=== PATIENT | male | born 1980 | race Caucasian/White ===

== ENCOUNTER → 2017-05-19 | Outpatient (CLI) | payer OTHER ==
[2017-05-19 14:57] LABS: ALBUMIN 4.1 GM/DL (3.2-5.2); ALBUMIN/GLOBULIN RATIO 1.17 (1.00-1.93); ALKALINE PHOSPHATASE 70 U/L (45-117); ALT/SGPT 31 U/L (12-78); ANION GAP 9 MEQ/L (8-16); AST/SGOT 15 U/L (7-37); BILIRUBIN,TOTAL 0.6 MG/DL (0.2-1.0); BLOOD UREA NITROGEN 23 MG/DL (7-18); CALCIUM LEVEL 9.1 MG/DL (8.5-10.1); CARBON DIOXIDE LEVEL 27 MEQ/L (21-32); CHLORIDE LEVEL 106 MEQ/L (98-107); CHOLESTEROL LEVEL 158 MG/DL (<200); CHOLESTEROL RISK RATIO 3.291 (<5); CREATININE FOR GFR 0.78 MG/DL (0.70-1.30); GLOMERULAR FILTRATION RATE > 60.0 (>60); GLUCOSE, FASTING 102 MG/DL (70-100); HDL CHOLESTEROL 48 MG/DL (>40); NON-HDL-C 110 MG/DL; POTASSIUM SERUM 4.4 MEQ/L (3.5-5.1); SODIUM LEVEL 142 MEQ/L (136-145); TOTAL PROTEIN 7.6 GM/DL (6.4-8.2); TRIGLYCERIDES LEVEL 115 MG/DL (<150)
== END ==
LOC: M SMT 09:16
DX: E66.9 Obesity, unspecified (principal)
CPT/HCPCS: 80053

== ENCOUNTER 2018-06-25 16:41 | Emergency (ER) | payer OTHER, SELFPAY ==
[~2018-06-25] VITALS: Ht 185.4 cm; Wt 163.6 kg
[2018-06-25] MEDS ORDERED: ACETAMINOPHEN TAB 650MG DOSE (2X325MG) PO ONE (18:45)
--- NOTE | 2018-06-25 18:59 | REP ---
Clinical: Trauma. Technique: Axial noncontrast images from the skull base to the thoracic inlet with coronal and sagittal re-formations. Comparison: Cervical spine x-rays dated 04/28/2017. Findings: Straightening of normal lordosis is nonspecific may be related to positioning versus pain/spasm. No acute fracture / compression injury or subluxation identified. Mild multilevel degenerative changes include endplate sclerosis with minimal disc space narrowing predominantly involving C6-7 and C7-T1. Spinal canal is patent. Posterior elements and spinous processes are intact. Paravertebral soft tissues are normal. Impression: Mild multilevel degenerative changes. No acute fracture / compression injury or subluxation. Electronically Signed by James Paul MD 06/25/2018 06:50 P
--- NOTE | 2018-06-25 19:06 | REP ---
Clinical: Trauma. Technique: Frontal view of the chest with multiple (4) views of the left hemithorax. Findings: Frontal view of the chest demonstrates no acute cardiopulmonary process. Multiple views of the left hemithorax demonstrates no obvious acute rib fracture or pathology. Impression: Normal left rib series. No acute fracture or dislocation appreciated. Electronically Signed by James Paul MD 06/25/2018 06:58 P
--- NOTE | 2018-06-25 19:07 | REP ---
Clinical: Trauma. Fall. Technique: Internal rotation, external rotation, and Y view of the left shoulder. Findings: Mild age-related changes at the acromioclavicular joint and glenoid are appreciated. There is no evidence for acute fracture or dislocation. Subacromial space is normal. No periarticular calcifications or loose bodies are identified. Surrounding soft tissues are normal. Impression: Mild age-related changes. No evidence for acute fracture or dislocation. Electronically Signed by James Paul MD 06/25/2018 06:58 P
[2018-06-25] MEDS ORDERED: HYDR-3715 PO (19:27)
[2018-06-25 19:34] VITALS: BP 121/74
== END 2018-06-25 19:35 | disposition home or self-care (01) ==
LOC: M ED 16:41
DX: S46.812A Strain of other muscles, fascia and tendons at shoulder and upper arm level, left arm, initial encounter (principal); M50.30 Other cervical disc degeneration, unspecified cervical region; W00.2XXA Other fall from one level to another due to ice and snow, initial encounter; Y92.812 Truck as the place of occurrence of the external cause; Y99.0 Civilian activity done for income or pay; Z88.8 Allergy status to other drugs, medicaments and biological substances

== ENCOUNTER 2018-09-12 01:01 | Emergency (ER) | payer OTHER ==
[~2018-09-12] VITALS: Ht 185.4 cm; Wt 163.6 kg
[~2018-09-12 01:01] MED LIST: HYDR-3715 PO
[2018-09-12] MEDS ORDERED: NORCO, ANEXSIA 5/325MG TABLET (HYDROcodone/ACETAMINOPHEN) PO ONE (02:00)
[2018-09-12] MEDS ORDERED: TRAM50TA2 PO (03:01)
[2018-09-12 03:20] VITALS: BP 137/69
--- NOTE | 2018-09-12 09:30 | REP ---
RIGHT KNEE SERIES: Six views of the right knee are performed. No fracture or dislocation is seen. There is minimal medial joint space narrowing. There is mild patellofemoral compartment narrowing and mild spurring of the lateral patellar facet and superior pole of the patella. There does not appear to be a significant joint effusion. IMPRESSION: Mild degenerative changes. No fracture or dislocation. Electronically Signed by Timoteo Evangelista MD 09/12/2018 04:38 P
== END 2018-09-12 03:26 | disposition home or self-care (01) ==
LOC: M ED 01:01
DX: M76.51 Patellar tendinitis, right knee (principal); M70.41 Prepatellar bursitis, right knee; W11.XXXA Fall on and from ladder, initial encounter; Y92.099 Unspecified place in other non-institutional residence as the place of occurrence of the external cause; Y93.9 Activity, unspecified; Y99.9 Unspecified external cause status; Z88.6 Allergy status to analgesic agent

== ENCOUNTER 2019-11-02 16:31 | Emergency (ER) | payer OTHER ==
[~2019-11-02 16:31] MED LIST changes: +TRAM50TA2 PO
[2019-11-02] MEDS ORDERED: ACETAMINOPHEN 325 MG TAB ONE (20:21)
[2019-11-02] MEDS ORDERED: MAGNESIUM SULFATE 1GM/100ML D5W BAG (10MG/ML) ONE (21:33)
[2019-12-08 21:36] LABS: BASO % 0.1 % (0.0-1.0); HEMATOCRIT 39.7 % (42.0-52.0); HEMOGLOBIN 13.7 g/dl (13.5-17.5); LYMPH # 0.5 10^3/uL (1.5-5.0); LYMPH % 2.8 % (24.0-44.0); MEAN CORPUSCULAR HEMOGLOBIN 28.6 pg (27.0-33.0); MEAN CORPUSCULAR HGB CONC 34.5 g/dl (32.0-36.5); MEAN CORPUSCULAR VOLUME 82.9 fl (80.0-96.0); MONO # 0.9 10^3/uL (0.0-0.8); MONO % 5.4 % (0.0-5.0); NEUTROPHILS # 14.8 10^3/uL (1.5-8.5); NEUTROPHILS % 91.1 % (36.0-66.0); PLATELET COUNT, AUTOMATED 238 10^3/uL (150-450); RED BLOOD COUNT 4.79 10^6/uL (4.30-6.10); WHITE BLOOD COUNT 16.2 10^3/uL (4.0-10.0)
--- NOTE | 2019-12-17 14:03 | ECGEPIP ---
[facility] - ED Test Date: 2019-11-02 Pat Name: ANI HUIZAR JR Department: Room: - Gender: Male [employer] Systems [employer]: : 1980 Requested By: EMERGENCY ROOM Order Number: [id number] Reading MD: Alix Ramesh Measurements Intervals [place]man Rate: 107 P: 1 MO: 143 QRS: -13 QRSD: 95 T: -3 QT: 293 QTc: 391 Interpretive Statements SINUS TACHYCARDIA ABNORMAL RHYTHM ECG INTERPRETATION BASED ON A DEFAULT AGE OF 40 YEARS PRWP NO OLD AVAILABLE SEE SCANNED DOWNTIME REPORT
--- NOTE | 2019-12-18 15:59 | ECGEPIP ---
SINUS RHYTHM NORMAL ECG INTERPRETATION BASED ON A DEFAULT AGE OF 40 YEARS, NO OLD AVAILABLE SEE SCANNED DOWNTIME REPORT MTDD
[2020-01-12 14:03] LABS: ALBUMIN 4.7 GM/DL (3.2-5.2); ALT/SGPT 34 U/L (12-78); BILIRUBIN,TOTAL 1.4 MG/DL (0.2-1.0); BLOOD UREA NITROGEN 23 MG/DL (7-18); CALCIUM LEVEL 9.1 MG/DL (8.5-10.1); CARBON DIOXIDE LEVEL 25 MEQ/L (21-32); CHLORIDE LEVEL 103 MEQ/L (98-107); CREATININE FOR GFR 1.32 MG/DL (0.70-1.30); GLOMERULAR FILTRATION RATE > 60.0 (>60); GLUCOSE, FASTING 100 MG/DL (70-100); MAGNESIUM LEVEL 1.6 MG/DL (1.8-2.4); SODIUM LEVEL 136 MEQ/L (136-145); TROPONIN I < 0.02 NG/ML (< 0.10)
== END 2019-11-03 03:03 | disposition home or self-care (01) ==
LOC: M ED 16:31
DX: E86.0 Dehydration (principal); R07.89 Other chest pain; Z88.8 Allergy status to other drugs, medicaments and biological substances
CPT/HCPCS: 80053; 83605; 83735; 85025; 87486; 87581; 87633; 87798; 93005; 96374; 99283; J3475

== ENCOUNTER → 2020-04-08 | Outpatient (CLI) | payer MEDICAID, OTHER ==
--- NOTE | 2020-04-08 13:55 | REP ---
INDICATION: DVT COMPARISON: None. TECHNIQUE: Evangelista scale and color Doppler evaluation right lower extremity using linear high frequency transducer. FINDINGS: Ultrasound examination of the right lower extremity deep venous structures from the common femoral vein to the popliteal vein demonstrates normal compressibility flow and wave patterns in response to respiration and augmentation. There is no evidence for deep venous thrombosis. IMPRESSION: No evidence for deep venous thrombosis. <Electronically signed by James Paul > 04/08/20 1324
== END ==
LOC: M RAD 12:44
PROVIDERS: ATTEND Physician Assistant
DX: R22.42 Localized swelling, mass and lump, left lower limb (principal); M79.661 Pain in right lower leg

== ENCOUNTER 2020-10-12 17:08 | Emergency (ER) | payer OTHER ==
[~2020-10-12] VITALS: Ht 185.4 cm; Wt 157.3 kg
[2020-10-12 17:08] VITALS: BP 170/95
[2020-10-12 21:21] LABS: BASO % 0.1 % (0.0-1.0); EOS # 0.1 10^3/uL (0.0-0.5); EOS % 1.8 % (0.0-3.0); HEMATOCRIT 41.6 % (42.0-52.0); HEMOGLOBIN 14.1 g/dl (13.5-17.5); LYMPH # 1.7 10^3/uL (1.5-5.0); LYMPH % 23.5 % (24.0-44.0); MEAN CORPUSCULAR HEMOGLOBIN 28.9 pg (27.0-33.0); MEAN CORPUSCULAR HGB CONC 33.9 g/dl (32.0-36.5); MEAN CORPUSCULAR VOLUME 85.2 fl (80.0-96.0); MONO # 0.6 10^3/uL (0.0-0.8); MONO % 8.5 % (2.0-8.0); NEUTROPHILS # 4.6 10^3/uL (1.5-8.5); NEUTROPHILS % 65.5 % (36.0-66.0); PLATELET COUNT, AUTOMATED 261 10^3/uL (150-450); RED BLOOD COUNT 4.88 10^6/uL (4.30-6.10); WHITE BLOOD COUNT 7.1 10^3/uL (4.0-10.0)
[2020-10-12 21:55] LABS: ERYTHROCYTE SEDIMENTATION RATE 11 mm/hr (0-15)
== END 2020-10-12 23:16 | disposition home or self-care (01) ==
LOC: M ED 17:08
DX: S92.591A Other fracture of right lesser toe(s), initial encounter for closed fracture (principal); W22.8XXA Striking against or struck by other objects, initial encounter; Y92.018 Other place in single-family (private) house as the place of occurrence of the external cause; Z88.8 Allergy status to other drugs, medicaments and biological substances

== ENCOUNTER 2022-11-09 14:04 | Inpatient (IN) | payer OTHER ==
[~2022-11-09] VITALS: Ht 185.4 cm; Wt 156.7 kg
[2022-11-09 15:52] LABS: BASO % 0.1 % (0.0-1.0); EOS % 0.1 % (0.0-3.0); HEMOGLOBIN 13.7 g/dl (13.5-17.5); LYMPH # 0.6 10^3/uL (1.5-5.0); LYMPH % 3.5 % (24.0-44.0); MEAN CORPUSCULAR HEMOGLOBIN 29.4 pg (27.0-33.0); MEAN CORPUSCULAR HGB CONC 35.1 g/dl (32.0-36.5); MEAN CORPUSCULAR VOLUME 83.7 fl (80.0-96.0); MONO # 0.7 10^3/uL (0.0-0.8); MONO % 4.6 % (2.0-8.0); NEUTROPHILS # 14.7 10^3/uL (1.5-8.5); NEUTROPHILS % 91.3 % (36.0-66.0); PLATELET COUNT, AUTOMATED 215 10^3/uL (150-450); RED BLOOD COUNT 4.66 10^6/uL (4.30-6.10); WHITE BLOOD COUNT 16.2 10^3/uL (4.0-10.0)
[2022-11-09 16:13] LABS: BLOOD UREA NITROGEN 19 MG/DL (9-23); CALCIUM LEVEL 8.8 MG/DL (8.5-10.1); CARBON DIOXIDE LEVEL 26 MMOL/L (20-31); CHLORIDE LEVEL 104 MMOL/L (98-107); CPK CREATINE PHOSPHOKINASE 372 U/L (46-171); CREATININE FOR GFR 0.79 MG/DL (0.70-1.30); GLOMERULAR FILTRATION RATE > 60.0 (>60); GLUCOSE, FASTING 100 MG/DL (60-100); MB/CK RELATIVE INDEX 0.53 (< OR =4); POTASSIUM SERUM 4.1 MMOL/L (3.5-5.1); SODIUM LEVEL 138 MMOL/L (136-145)
[2022-11-09 16:24] LABS: ERYTHROCYTE SEDIMENTATION RATE 6 mm/hr (0-15)
[2022-11-09] MEDS ORDERED: ACETAMINOPHEN 1000MG 100ML IV BAG IV ONE (17:25)
[2022-11-09] MEDS ORDERED: NS 1,000 ML IV ONE (17:25)
[2022-11-09] MEDS ORDERED: ISOVUE-370 76% 100ML VIAL As Ordered ONE (17:37)
[2022-11-09] MEDS ORDERED: KETOROLAC 30 MG/ML 1ML VIAL IV ONE (19:20)
[2022-11-09 19:23] LABS: MONO SCRN NEGATIVE (NEGATIVE)
[2022-11-09] MEDS ORDERED: ONDANSETRON 4MG 2ML VIAL IV ONE (23:40)
[2022-11-10] MEDS ORDERED: ACETAMINOPHEN 1000MG 100ML IV BAG IV ONE (01:00)
[2022-11-10] MEDS ORDERED: NS 1,000 ML IV ONE ×2 (01:05→04:00)
[2022-11-10] MEDS ORDERED: LIDOCAINE 1% MDV 20ML VIAL As Ordered ONE (01:57)
[2022-11-10] MEDS ORDERED: LIDOCAINE 1% MDV 20ML VIAL SC ONE (02:15)
[2022-11-10 03:03] LABS: APPEARANCE, CSF CLEAR (CLEAR); COLOR, CSF COLORLESS (COLORLESS); CSF TUBE# CELL CNT TUBE 1
[2022-11-10 03:26] LABS: APPEARANCE, CSF CLEAR (CLEAR); COLOR, CSF COLORLESS (COLORLESS); CSF TUBE# CELL CNT TUBE 4
[2022-11-10 03:47] LABS: CSF TUBE# TP TUBE 2; TOTAL PROTEIN,CSF 26.7 MG/DL (15-45)
[2022-11-10 03:49] LABS: CSF TUBE# GLU TUBE 2
[2022-11-10] MEDS ORDERED: HYDROMORPHONE HCL 0.5 MG/ 0.5 ML SYRINGE IV PRN (04:00)
[2022-11-10] MEDS ORDERED: ACETAMINOPHEN TAB 650MG DOSE (2X325MG) PO PRN (04:00)
[2022-11-10] MEDS ORDERED: ONDANSETRON 4MG 2ML VIAL IV PRN (04:00)
[2022-11-10] MEDS: LR 1,000 ML IV SCH ×2 (04:00→13:29)
[2022-11-10] MEDS ORDERED: ALEV220T22 PO (04:04)
[2022-11-10] MEDS ORDERED: HOME MED LIST COMPLETE! XX SCH (04:05)
[2022-11-10 04:10] LABS: RSV AMPLIFICATION NEGATIVE (NEGATIVE)
[2022-11-10] MEDS ORDERED: VANCOMYCIN HCL 2,000 MG, VIAL MATE ADAPTER 1 EACH in D5W 250 ML IV SCH (04:35)
[2022-11-10] MEDS ORDERED: VANCOMYCIN HCL 1,000 MG, VIAL MATE ADAPTER 1 EACH in D5W 250 ML IV ONE ×2 (05:00→06:00)
[2022-11-10] MEDS ORDERED: CLINDAMYCIN 900 MG in IV 1 EA IV SCH (05:00)
[2022-11-10 05:58] LABS: BASO % 0.1 % (0.0-1.0); HEMATOCRIT 35.1 % (42.0-52.0); HEMOGLOBIN 12.2 g/dl (13.5-17.5); LYMPH # 0.6 10^3/uL (1.5-5.0); LYMPH % 5.3 % (24.0-44.0); MEAN CORPUSCULAR HEMOGLOBIN 29.3 pg (27.0-33.0); MEAN CORPUSCULAR HGB CONC 34.8 g/dl (32.0-36.5); MEAN CORPUSCULAR VOLUME 84.2 fl (80.0-96.0); MONO # 0.4 10^3/uL (0.0-0.8); NEUTROPHILS # 9.3 10^3/uL (1.5-8.5); NEUTROPHILS % 89.9 % (36.0-66.0); PLATELET COUNT, AUTOMATED 164 10^3/uL (150-450); RED BLOOD COUNT 4.17 10^6/uL (4.30-6.10); WHITE BLOOD COUNT 10.4 10^3/uL (4.0-10.0)
[2022-11-10 06:11] LABS: ALBUMIN 3.5 G/DL (3.2-5.2); ALKALINE PHOSPHATASE 53 U/L (46-116); ALT/SGPT 26 U/L (7.0-40); AST/SGOT 15 U/L (<34); BILIRUBIN,TOTAL 1.4 MG/DL (0.3-1.2); BLOOD UREA NITROGEN 19 MG/DL (9-23); CALCIUM LEVEL 7.9 MG/DL (8.5-10.1); CARBON DIOXIDE LEVEL 22 MMOL/L (20-31); CHLORIDE LEVEL 106 MMOL/L (98-107); CREATININE FOR GFR 0.85 MG/DL (0.70-1.30); GLOMERULAR FILTRATION RATE > 60.0 (>60); GLUCOSE, FASTING 123 MG/DL (60-100); POTASSIUM SERUM 3.6 MMOL/L (3.5-5.1); SODIUM LEVEL 138 MMOL/L (136-145); TOTAL PROTEIN 6.1 G/DL (5.7-8.2)
[2022-11-10] MEDS ORDERED: traMADol 50 MG TAB PO PRN (08:00)
[2022-11-10] MEDS ORDERED: PERCOCET 5MG/325MG TAB PO PRN (08:00)
[2022-11-10] MEDS ORDERED: ENOXAPARIN 40MG/0.4ML SYRINGE (J1650 PER 10MG) SC SCH ×2 (09:00→14:00)
[2022-11-10 11:38] LABS: HEMOGLOBIN A1c 5.7 % (4.0-6.0)
[2022-11-10 11:40] LABS: CHOLESTEROL RISK RATIO 2.52 (<5); HDL CHOLESTEROL 45.9 MG/DL (>40); LDL CHOLESTEROL 58.5 MG/DL (<100); NON-HDL-C 70.1 MG/DL
[2022-11-10] MEDS: VANCOMYCIN HCL 1,000 MG, VIAL MATE ADAPTER 1 EACH in D5W 250 ML IV SCH ×2 (13:29→20:37)
[2022-11-10 13:30] VITALS: BP 128/78; TEMP 98.8; O2SAT 96
[2022-11-10 20:47] VITALS: BP 118/67; TEMP 99.1; O2SAT 98
[2022-11-11] MEDS: LR 1,000 ML IV SCH (00:43)
[2022-11-11 04:11] LABS: HEMATOCRIT 36.5 % (42.0-52.0); HEMOGLOBIN 12.7 g/dl (13.5-17.5); MEAN CORPUSCULAR HEMOGLOBIN 29.3 pg (27.0-33.0); MEAN CORPUSCULAR HGB CONC 34.8 g/dl (32.0-36.5); MEAN CORPUSCULAR VOLUME 84.1 fl (80.0-96.0); PLATELET COUNT, AUTOMATED 156 10^3/uL (150-450); RED BLOOD COUNT 4.34 10^6/uL (4.30-6.10); WHITE BLOOD COUNT 4.4 10^3/uL (4.0-10.0)
[2022-11-11 04:38] LABS: ALBUMIN 3.2 G/DL (3.2-5.2); ALKALINE PHOSPHATASE 58 U/L (46-116); ALT/SGPT 27 U/L (7.0-40); AST/SGOT 14 U/L (<34); BILIRUBIN,TOTAL 0.8 MG/DL (0.3-1.2); BLOOD UREA NITROGEN 8 MG/DL (9-23); CALCIUM LEVEL 8.1 MG/DL (8.5-10.1); CARBON DIOXIDE LEVEL 26 MMOL/L (20-31); CHLORIDE LEVEL 109 MMOL/L (98-107); CREATININE FOR GFR 0.86 MG/DL (0.70-1.30); GLOMERULAR FILTRATION RATE > 60.0 (>60); GLUCOSE, FASTING 127 MG/DL (60-100); POTASSIUM SERUM 3.7 MMOL/L (3.5-5.1); SODIUM LEVEL 141 MMOL/L (136-145)
[2022-11-11] MEDS ORDERED: VANCOMYCIN HCL 1,000 MG, VIAL MATE ADAPTER 1 EACH in D5W 250 ML IV ONE ×2 (05:00→06:00)
[2022-11-11 05:37] VITALS: BP 116/70; TEMP 98.8; O2SAT 97
[2022-11-11] MEDS ORDERED: TRAM50TA2 PO (07:31)
[2022-11-11] MEDS ORDERED: DOXY-444 PO (09:36)
== END 2022-11-11 10:38 | disposition home or self-care (01) | DRG 720 ==
LOC: M ED 14:04 → M ED INP 11-10 03:58 → M MSPAV 11-10 13:20
PROVIDERS: ADMIT Internal Medicine; ATTEND Internal Medicine
DX: A41.9 Sepsis, unspecified organism (principal); E66.01 Morbid (severe) obesity due to excess calories; L03.115 Cellulitis of right lower limb; I83.93 Asymptomatic varicose veins of bilateral lower extremities; R51.9 Headache, unspecified

== ENCOUNTER → 2023-08-14 | Outpatient (CLI) | payer OTHER ==
[~2023-08-14] MED LIST changes: +ALEV220T22 PO; +DOXY-440 PO
== END ==
LOC: M RAD 11:16
PROVIDERS: ATTEND Physician Assistant
DX: M47.814 Spondylosis without myelopathy or radiculopathy, thoracic region (principal); M70.61 Trochanteric bursitis, right hip; M25.551 Pain in right hip; M54.50 Low back pain, unspecified; Y93.9 Activity, unspecified

== ENCOUNTER → 2024-05-02 | Outpatient (CLI) | payer OTHER | LOC: M PLAIMG 11:08 | PROVIDERS: ATTEND Physician Assistant | DX: M53.3 Sacrococcygeal disorders, not elsewhere classified (principal); M47.816 Spondylosis without myelopathy or radiculopathy, lumbar region; M54.50 Low back pain, unspecified ==

== ENCOUNTER → 2024-10-18 | Outpatient (CLI) | payer OTHER ==
[~2024-10-18] MED LIST changes: +CEFD1CAP9 PO; +PROBCAP14 PO
[2024-10-18 10:49] LABS: BASO # 0.0 10^3/uL (0.0-0.2); BASO % 0.2 % (0.0-1.0); EOS # 0.1 10^3/uL (0.0-0.5); EOS % 2.5 % (0.0-3.0); LYMPH # 1.3 10^3/uL (1.5-5.0); LYMPH % 29.3 % (24.0-44.0); MONO # 0.5 10^3/uL (0.0-0.8); MONO % 11.9 % (2.0-8.0); NEUTROPHILS # 2.5 10^3/uL (1.5-8.5); NEUTROPHILS % 55.9 % (36.0-66.0); PLATELET COUNT, AUTOMATED 264 10^3/uL (150-450)
== END ==
LOC: M PLALAB 08:42
PROVIDERS: ATTEND Physician Assistant
DX: L03.115 Cellulitis of right lower limb (principal)